=== PATIENT | female | born 1970 | race Caucasian/White ===

== ENCOUNTER 2024-08-30 01:30 | Emergency (ER) | payer MEDICARE, BC ==
[2024-08-30] MEDS: traMADol 50 MG Tab PO ONE (02:09)
[2024-08-30] MEDS: Acetaminophen/HYDROcodone 325-5 MG Tab PO ONE (02:12)
[2024-08-30] MEDS: Take Home: Acetaminophen/HYDROcodone 325-5 MG, 5 Tab Pack PO ONE (03:11)
== END 2024-08-30 03:16 | disposition home or self-care (01) ==
LOC: DL.ED 01:30
DX: S29.012A Strain of muscle and tendon of back wall of thorax, initial encounter (principal); S39.012A Strain of muscle, fascia and tendon of lower back, initial encounter; Z88.8 Allergy status to other drugs, medicaments and biological substances; X50.0XXA Overexertion from strenuous movement or load, initial encounter; Y93.89 Activity, other specified
CPT/HCPCS: 72072; 72100; 99283; 99284; A9270-GY

== ENCOUNTER 2024-09-02 19:35 | Observation (INO) | payer MEDICARE, BC ==
[2024-09-02] MEDS ORDERED: Sodium Chloride 0.9% 10 ML Syringe FLUSH PRN (20:43)
[2024-09-02 20:50] LABS: APPEARANCE,URINE CLEAR (CLEAR); BILIRUBIN,URINE SMALL (NEGATIVE); COLOR,URINE YELLOW (YELLOW); GLUCOSE,URINE 500 (NEGATIVE); KETONES,URINE 80 (NEGATIVE); LEUKOCYTE ESTERASE,URINE NEGATIVE (NEGATIVE); NITRITE,URINE NEGATIVE (NEGATIVE); OCCULT BLOOD,URINE MODERATE (NEGATIVE); PH,URINE 5.5 (5.0-9.0); PROTEIN,URINE NEGATIVE (NEGATIVE); UROBILINOGEN,URINE 0.2 mg/dL (0.2-1.0)
[2024-09-02] MEDS ORDERED: Glucagon,Human Recombinant 1 MG Vial IM PRN (20:58)
[2024-09-02] MEDS ORDERED: 50% Dextrose in Water 50 ML Syringe IVPUSH PRN (20:58)
[2024-09-02] MEDS: Ondansetron 4 MG/2 ML SDV IVPUSH ONE (21:15)
[2024-09-02] MEDS: Sodium Chloride 0.9% 1,000 ML IV ONE ×2 (21:16→22:17)
[2024-09-02] MEDS: Insulin Regular, Human 100 Units/ML 10 ML Vial IV ONE (21:17)
[2024-09-02 21:21] LABS: BACTERIA,URINE FEW /HPF (0-FEW/HPF); EPITHELIAL CELLS,URINE FEW /HPF (NOT SEEN); MUCUS,URINE FEW /LPF (NOT SEEN); WBC,URINE 0-5 /HPF (0-5/HPF)
[2024-09-02] MEDS: Insulin Regular in 0.9 % NACL 100 ML IV SCH (21:22)
[2024-09-02 21:25] LABS: HEMATOCRIT 37.8 % (37.0-47.0); HEMOGLOBIN 10.6 g/dL (12.0-16.0); MEAN CORPUSCULAR HEMOGLOBIN 24.1 pg (27.0-34.0); MEAN CORPUSCULAR VOLUME 85.9 fL (80-100); PLATELET COUNT,PLT 247 10^3/uL (150-450); WHITE BLOOD CELL COUNT,WBC 6.5 10^3/uL (5.0-10.0)
[2024-09-02 21:42] LABS: BASOPHILS PERCENT AUTO 0.3 % (0.0-1.0); EOSINOPHILS PERCENT AUTO 0.6 % (1.0-3.0); LYMPHOCYTES PERCENT AUTO 21.7 % (20.5-50.1); MONOCYTES PERCENT AUTO 8.2 % (2-8); NEUTROPHILS PERCENT AUTO 69.2 % (42.2-75.2)
[2024-09-02 22:00] LABS: LACTIC ACID 1.5 mmol/L (0.4-2.0)
[2024-09-02 22:06] LABS: ALBUMIN 3.2 g/dL (3.4-5.0); ANION GAP 31.2 mEq/L (7-13); BILIRUBIN TOTAL 0.8 mg/dL (0.2-1.0); BUN/CREATININE RATIO 22.2 (No establ ref range); CALCIUM 9.5 mg/dL (8.5-10.1); CREATININE 1.67 mg/dL (0.55-1.02); EST CRCL DRUG DOSING (CG) 29.75 mL/min; MAGNESIUM 1.9 mg/dL (1.8-2.4); POTASSIUM,K 6.2 mmol/L (3.5-5.1); PROTEIN TOTAL,TP 7.4 g/dL (6.4-8.2)
[2024-09-02 22:08] LABS: A/G RATIO 0.76
[2024-09-02 22:34] LABS: BAND PERCENT MAN 1 %; EOSINOPHILS PERCENT MAN 1 % (1-3); LYMPHOCYTES PERCENT MAN 22 % (20-50); MONOCYTES PERCENT MAN 6 % (2-8); SEG NEUTROPHILS PERCENT MAN 70 % (42-75)
[2024-09-02] MEDS: Ondansetron 4 MG/2 ML SDV IVPUSH STA (23:35)
[2024-09-02] MEDS: Ondansetron 4 MG/2 ML SDV ONE (23:40)
[2024-09-02] MEDS ORDERED: Acetaminophen 325 MG Tab PO PRN (23:48)
[2024-09-02] MEDS ORDERED: Ondansetron 4 MG/2 ML SDV IVPUSH PRN (23:51)
[2024-09-03] MEDS: Sodium Chloride 0.9% 1,000 ML IV SCH (00:03)
[2024-09-03] MEDS ORDERED: TACROLIMUS 0.5 MG PO SCH (00:15)
[2024-09-03 00:45] LABS: ANION GAP 26.7 mEq/L (7-13); CALCIUM 8.9 mg/dL (8.5-10.1); CREATININE 1.85 mg/dL (0.55-1.02); EST CRCL DRUG DOSING (CG) 26.85 mL/min; POTASSIUM,K 4.7 mmol/L (3.5-5.1)
[2024-09-03] MEDS: Apixaban 5 MG Tab PO SCH (00:53)
[2024-09-03] MEDS: Mycophenolate Mofetil 250 MG Cap PO SCH (00:53)
[2024-09-03] MEDS: Metoprolol Tartrate 5 MG/5 ML SDV IVPUSH SCH (00:53)
[2024-09-03] MEDS: Aspirin 81 MG Tab.Chew PO SCH (00:53)
[2024-09-03] MEDS: Formoterol/Mometasone 200-5 MCG 8.8 GM Inhaler INH SCH (01:16)
[2024-09-03] MEDS: Dextrose 5%-0.45% NaCl 1,000 ML IV SCH (01:48)
[2024-09-03 02:15] LABS: ANION GAP 18.6 mEq/L (7-13); CREATININE 1.76 mg/dL (0.55-1.02); EST CRCL DRUG DOSING (CG) 28.23 mL/min; POTASSIUM,K 4.6 mmol/L (3.5-5.1)
[2024-09-03 03:22] LABS: ANION GAP 15.7 mEq/L (7-13); CALCIUM 8.9 mg/dL (8.5-10.1); CREATININE 1.53 mg/dL (0.55-1.02); EST CRCL DRUG DOSING (CG) 32.47 mL/min; POTASSIUM,K 4.7 mmol/L (3.5-5.1)
[2024-09-03 04:24] LABS: ANION GAP 13.4 mEq/L (7-13); CALCIUM 8.8 mg/dL (8.5-10.1); CREATININE 1.44 mg/dL (0.55-1.02); EST CRCL DRUG DOSING (CG) 34.5 mL/min; POTASSIUM,K 4.4 mmol/L (3.5-5.1)
[2024-09-03 05:22] LABS: ANION GAP 11.4 mEq/L (7-13); CALCIUM 8.9 mg/dL (8.5-10.1); CREATININE 1.42 mg/dL (0.55-1.02); EST CRCL DRUG DOSING (CG) 34.99 mL/min; POTASSIUM,K 4.4 mmol/L (3.5-5.1)
[2024-09-03 06:25] LABS: BASOPHILS PERCENT AUTO 0.3 % (0.0-1.0); EOSINOPHILS PERCENT AUTO 1.1 % (1.0-3.0); HEMATOCRIT 29.9 % (37.0-47.0); LYMPHOCYTES PERCENT AUTO 28.4 % (20.5-50.1); MEAN CORPUSCULAR HEMOGLOBIN 23.3 pg (27.0-34.0); MEAN CORPUSCULAR HGB CONC 30.1 g/dL (33.0-35.0); MEAN CORPUSCULAR VOLUME 77.5 fL (80-100); MONOCYTES PERCENT AUTO 12.4 % (2-8); NEUTROPHILS PERCENT AUTO 57.8 % (42.2-75.2); PLATELET COUNT,PLT 206 10^3/uL (150-450); RED BLOOD CELL COUNT 3.86 10^6/uL (4.2-5.4); WHITE BLOOD CELL COUNT,WBC 6.1 10^3/uL (5.0-10.0)
[2024-09-03 06:46] LABS: ANION GAP 12.3 mEq/L (7-13); CALCIUM 8.8 mg/dL (8.5-10.1); CREATININE 1.35 mg/dL (0.55-1.02); EST CRCL DRUG DOSING (CG) 36.8 mL/min; MAGNESIUM 1.7 mg/dL (1.8-2.4); PHOSPHORUS 2.6 mg/dL (2.6-4.7); POTASSIUM,K 4.3 mmol/L (3.5-5.1)
[2024-09-03 07:35] LABS: ANION GAP 13.4 mEq/L (7-13); CALCIUM 8.7 mg/dL (8.5-10.1); CREATININE 1.31 mg/dL (0.55-1.02); EST CRCL DRUG DOSING (CG) 37.93 mL/min; POTASSIUM,K 4.4 mmol/L (3.5-5.1)
[2024-09-03] MEDS ORDERED: Glucagon,Human Recombinant 1 MG Vial IM PRN ×2 (08:19→08:28)
[2024-09-03] MEDS ORDERED: 50% Dextrose in Water 50 ML Syringe IVPUSH PRN ×2 (08:19→08:28)
[2024-09-03 08:25] LABS: ANION GAP 15.9 mEq/L (7-13); CALCIUM 8.8 mg/dL (8.5-10.1); CREATININE 1.27 mg/dL (0.55-1.02); EST CRCL DRUG DOSING (CG) 39.12 mL/min; POTASSIUM,K 4.9 mmol/L (3.5-5.1)
[2024-09-03] MEDS: Insulin Glarg,Human.Rec.Analog 100 Unit/ML 10 ML Vial SUBCUT SCH (08:32)
[2024-09-03] MEDS: Insulin Lispro Protamine/Lispro 75-25 100 Units/ML 10 ML Vial SUBCUT ONE (08:50)
[2024-09-03] MEDS ORDERED: Pantoprazole 40 MG Vial IVPUSH SCH (21:00)
== END 2024-09-03 10:47 | disposition home or self-care (01) ==
LOC: DL.ED 19:35 → DL.MS 22:48
PROVIDERS: ADMIT Internal Medicine; ATTEND Internal Medicine
DX: E10.10 Type 1 diabetes mellitus with ketoacidosis without coma (principal); I10 Essential (primary) hypertension; I25.10 Atherosclerotic heart disease of native coronary artery without angina pectoris; Z95.1 Presence of aortocoronary bypass graft; I48.91 Unspecified atrial fibrillation; Z79.01 Long term (current) use of anticoagulants; Z79.82 Long term (current) use of aspirin; Z79.899 Other long term (current) drug therapy
CPT/HCPCS: 36415; 80048; 80053; 81001; 82947; 83605; 83690; 83735; 84100; 85025; 93005; 94664; 96361; 96374; 99223; 99239; 99284; A9270; J1815; J2405; J3490; J7030; 96375; 96376; 99285; G0378